=== PATIENT | female | born 1930 | race Caucasian/White ===

== ENCOUNTER → 2016-09-28 | Outpatient (CLI) | payer OTHER ==
[2016-09-15 13:44] LABS: PROTIME(PATIENT) 32.1 SEC (12-15)
[2016-09-15 13:45] LABS: INR 2.7 (0.8-1.2)
== END ==
LOC: FIMAGING 14:05
PROVIDERS: ATTEND Internal Medicine
DX: Z13.820 Encounter for screening for osteoporosis (principal); M85.89 Other specified disorders of bone density and structure, multiple sites
CPT/HCPCS: 77080; G0463